=== PATIENT | female | born 1975 | race Caucasian/White ===

== ENCOUNTER 2017-06-18 12:39 | Emergency (ER) | payer SELFPAY ==
[~2017-06-18] VITALS: Ht 154.9 cm; Wt 66.7 kg
[2017-06-18] MEDS ORDERED: TETRACAINE 0.5% OPTH SOL 2 ML BTL ONE (12:48)
[2017-06-18 12:57] VITALS: BP 168/87
--- NOTE | 2017-06-18 13:12 | NUR ---
PATIENT WAS BIB EMS FROM [facility] AFTER BEING PEPPER SPRAYED SHE IS AWAKE AND ALERT C/O OF EYES BURNING AND SKIN ON BACK BURNING. SHE WAS GIVEN A GOWN AND TAKEN TO THE PATIENT SHOWER VIA WHEELCHAIR. WHEN SHE RETURNED FROM SHOWER SHE GOT UP FROM THE WHEELCHAIR AND LEFT THE ER SHE IS LWBS.
== END 2017-06-18 13:19 | disposition left against medical advice (07) ==
LOC: MED 12:39
DX: H57.8 Other specified disorders of eye and adnexa (principal); Z53.21 Procedure and treatment not carried out due to patient leaving prior to being seen by health care provider
CPT/HCPCS: 99281